=== PATIENT | male | born 1990 | race Hispanic/Latino ===

== ENCOUNTER 2018-04-28 11:29 | Day surgery (SDC) | payer BC ==
[2018-04-27 11:42] VITALS: BMI 26.4
[2018-04-28] MEDS ORDERED: Lactated Ringer's 1,000 ML IV ONE (12:01)
[2018-04-28] MEDS ORDERED: Lidocaine 1% Inj (20ml) ONE (13:00)
[2018-04-28] MEDS ORDERED: Bupivacaine 0.5% Inj(30mL) ONE (13:00)
[2018-04-28] MEDS ORDERED: ceFAZolin IV 1 gm in Dextrose 2 GM/100 ML BAG IVPB ONE (13:01)
[2018-04-28] MEDS ORDERED: Lidocaine 1% w Epi 1:100,000 Inj ONE (13:01)
[2018-04-28] MEDS ORDERED: Propofol 10 mg/ml Inj (20 ML) ONE ×2 (13:35→14:28)
[2018-04-28] MEDS ORDERED: ePHEDrine 50 mg/ml Inj ONE (13:35)
[2018-04-28] MEDS ORDERED: Succinylcholine 200 mg/10 ml Inj IV ONE (13:35)
[2018-04-28] MEDS ORDERED: Sodium Chloride 0.9% 10 ML IV ONE (13:39)
--- NOTE | 2018-04-28 15:06 | PCM.SURG1 ---
Surgeon's Initial Post Op Note - Surgeon's Notes Surgeon: Dr. Jones Resort Host: Dr. Bullock PGY-4 Type of Anesthesia: General Endo Pre-Operative Diagnosis: Pilonidal cyst Operative Findings: Pilonidal cyst Post-Operative Diagnosis: Pilonidal Cyst Operation Performed: Pilonidal cyst excision with advancement flap closure Specimen/Specimens Removed: pilonidal cyst Estimated Blood Loss: EBL {In ML}: 100 Blood Products Given: N/A Drains Used: Castillo Post-Op Condition: Good Date of Surgery/Procedure: 04/28/18 Time of Surgery/Procedure: 15:06
--- NOTE | 2018-04-28 15:11 | CP.SDSHP ---
Same Day Surgery H & P - Allergies Allergies: Allergies cefaclor [From Ceclor] Allergy (Verified 04/28/18 11:43) RASH - Physical Exam Vital Signs: Vital Signs 04/28/18 11:55 Temperature 98.4 F Pulse Rate 65 Respiratory 16 Rate Blood Pressure 134/78 O2 Sat by Pulse 96 Oximetry Short Stay Discharge - Short Stay Discharge Admitting Diagnosis/Reason for Visit: L05.91 Disposition: HOME/ ROUTINE Referrals: FAMILY PROVIDER,NO [Primary Care Provider] - Instructions: Ladarius-Snider Drain, Pilonidal Cyst (DC) Additional Instructions (Diet, Activity): Empty drain as needed and record output daily, bring record with you to doctor's office Follow up with Dr. Jones on Thursday for drain removal Keep area clean and dry After 48 hours, may remove dressing May shower 48 hours after surgery, do not take a bath or swim Leave white steri strips in place, they will fall off on their own over time
[2018-04-28 16:20] VITALS: O2SAT 98
[2018-04-28 16:34] VITALS: RESP 18
[2018-04-28 17:21] VITALS: BP 132/78; PULSE 62; TEMP 97.2
--- NOTE | 2018-05-01 01:19 | OP ---
PROCEDURE DATE: 04/28/2018 SURGEON: Anastasia Jones MD APPRENTICESHIP REPRESENTATIVE: Tiffanie Bullock DO TYPE OF ANESTHESIA: General. ANESTHESIA ADMINISTERED BY: Tonya Whitley MD PREOPERATIVE DIAGNOSIS: Pilonidal cyst. POSTOPERATIVE DIAGNOSIS: Pilonidal cyst. PROCEDURE: Excision of pilonidal cyst with advancement flap closure. DESCRIPTION OF OPERATION: The patient was anesthetized and placed on the operating table in a prone position with proper padding. The buttocks area was clipped of hair and then prepped and draped in the usual sterile manner. The patient was noted to have an indurated mass with a small nodular opening to the right of the midline on the medial aspect of the right buttock and 3 midline pits were noted in the gluteal crease just below the area of the palpable induration. A crescent shaped incision was marked to allow excision of the indurated sinus as well as the pits and to allow advancement of skin from the left buttock across to ablate the gluteal crease. The full-thickness of skin was incised, and then the subcutaneous tissue was excised to encompass all abnormal indurated subcutaneous tissue until normal-appearing fatty tissue was encountered. The subcutaneous tissue was excised down to the sacral and coccygeal fascia as well as the gluteal muscle fascia and the tissue along with the overlying crescent of skin was excised. The flaps were then elevated off the gluteal muscle fascia bilaterally to allow advancement and closure without tension, and after hemostasis, a small hemostatic drain was positioned beneath the flap and brought out through the right upper buttock. The subcutaneous tissue was approximated with interrupted sutures of 3-0 Vicryl and 4-0 Monocryl subcuticular suture was then used to close the skin. The suction was applied to the drain and noted to maintain excellent approximation of the flaps down to the fascia and Steri-Strips were placed as well to complete the closure. Dry sterile dressing was applied. The patient tolerated the procedure well and transferred to recovery room in stable condition. Estimated blood loss for the procedure was 100 mL. Anastasia Jones MD
== END 2018-04-28 17:23 | disposition home or self-care (01) ==
LOC: H.OPSURG 11:29
PROVIDERS: ATTEND Specialist
DX: L05.01 Pilonidal cyst with abscess (principal)
CPT/HCPCS: 11771; 88305; J0330; J0690; J1885; J2001; J2405; J2704; J2765; J3010; J7030; J7120